=== PATIENT | female | born 1990 | race Caucasian/White ===

== ENCOUNTER 2017-05-17 17:30 | Outpatient (CLI) | payer OTHER ==
[2017-05-17] MEDS ORDERED: PRENATAL TABLE1 EAC1 PO (18:16)
== END 2017-05-18 14:38 | disposition home or self-care (01) ==
LOC: OBS/DEL 17:30
DX: O23.33 Infections of other parts of urinary tract in pregnancy, third trimester (principal); O23.593 Infection of other part of genital tract in pregnancy, third trimester; N76.0 Acute vaginitis; B96.89 Other specified bacterial agents as the cause of diseases classified elsewhere; O60.03 Preterm labor without delivery, third trimester; Z34.83 Encounter for supervision of other normal pregnancy, third trimester

== ENCOUNTER 2017-06-29 23:44 | Inpatient (IN) | payer OTHER ==
[~2017-06-29] VITALS: Ht 160 cm; Wt 78.5 kg
[~2017-06-29 23:44] MED LIST: PRENATAL TABLE1 EAC1 PO
[2017-07-06] MEDS ORDERED: KEFLEX500 MG PO (08:09)
== END 2017-07-06 10:36 | disposition home or self-care (01) | DRG 781 ==
LOC: OB/GYN 23:44
PROC: 4A1HXCZ Monitoring of Products of Conception, Cardiac Rate, External Approach (ICD-10-PCS; principal; 2017-06-29)
PROC: BT43ZZZ Ultrasonography of Bilateral Kidneys (ICD-10-PCS; 2017-06-30)
DX: O26.893 Other specified pregnancy related conditions, third trimester (principal); N20.0 Calculus of kidney; O23.43 Unspecified infection of urinary tract in pregnancy, third trimester; B96.20 Unspecified Escherichia coli [E. coli] as the cause of diseases classified elsewhere; O23.593 Infection of other part of genital tract in pregnancy, third trimester; N76.0 Acute vaginitis; Z3A.34 34 weeks gestation of pregnancy

== ENCOUNTER 2017-07-30 05:28 | Inpatient (IN) | payer OTHER ==
[~2017-07-30] VITALS: Ht 160 cm; Wt 2.7 kg
[~2017-07-30 05:28] MED LIST changes: +KEFLEX500 MG PO
[2017-07-30] MEDS ORDERED: MUCINEX COLD L118 ML PO (06:04)
[2017-07-30] MEDS ORDERED: PRENATAL 19 TA1 EACH PO (06:05)
[2017-08-02] MEDS ORDERED: PERCOCET 5-3251 EACH PO (12:15)
[2017-08-02] MEDS ORDERED: SURFAK240 M1 PO (12:15)
== END 2017-08-02 12:28 | DRG 765 ==
LOC: LDR 05:28 → OB/GYN 05:28 → LDR 06:15 → O/R 13:21 → OB/GYN 16:01
PROVIDERS: Specialist; Urology
PROC: 0TQB0ZZ Repair Bladder, Open Approach (ICD-10-PCS; 2017-07-30)
PROC: 4A033R1 Measurement of Arterial Saturation, Peripheral, Percutaneous Approach (ICD-10-PCS; 2017-07-30)
PROC: 4A1HXCZ Monitoring of Products of Conception, Cardiac Rate, External Approach (ICD-10-PCS; 2017-07-30)
PROC: 10D00Z1 Extraction of Products of Conception, Low, Open Approach (ICD-10-PCS; principal; 2017-07-30 07:45)
PROC: 0UL70ZZ Occlusion of Bilateral Fallopian Tubes, Open Approach (ICD-10-PCS; 2017-07-30 07:45)
DX: O75.3 Other infection during labor (principal); O98.32 Other infections with a predominantly sexual mode of transmission complicating childbirth; N99.72 Accidental puncture and laceration of a genitourinary system organ or structure during other procedure; A63.0 Anogenital (venereal) warts; Z3A.39 39 weeks gestation of pregnancy; Z37.0 Single live birth; Z30.2 Encounter for sterilization